=== PATIENT | male | born 1990 | race Asian ===

== ENCOUNTER 2018-11-11 15:24 | Emergency (ER) | payer OTHER, SELFPAY ==
[2018-11-11 15:29] VITALS: BP 151/76; PULSE 84; RESP 18; TEMP 37; O2SAT 97; BMI 24.4
--- NOTE | 2018-11-11 15:33 | DI.RAD.S_ITS ---
PROCEDURE: XR CHEST 2V INDICATIONS: R side and back pain with occ SOB, hx of spont pneumo TECHNIQUE: 2 views of the chest were acquired. COMPARISON: None. FINDINGS: Surgical changes and devices: None. Lungs and pleura: Lungs are clear. Right hemidiaphragmatic scarring. No pleural effusions or pneumothorax. Mediastinum: Mediastinal contours are normal. Heart size is normal. Bones and chest wall: No suspicious bony abnormalities. Soft tissues appear unremarkable. IMPRESSION: No acute process. Dictated by: Bello Chaudhry M.D. on 11/11/2018 at 15:03 Approved by: Bello Chaudhry M.D. on 11/11/2018 at 15:03
--- NOTE | 2018-11-11 16:09 | PC.NURSE ---
left side discomfort, worsen when he is bending over. nad. no resp distress noted, cooperative with care, skin warm dry pink.
[2018-11-11 16:10] VITALS: BP 137/57; PULSE 75; RESP 15; O2SAT 97
--- NOTE | 2018-11-11 16:58 | ED.CHESTPAIN ---
HPI - Chest Pain General Chief Complaint: Chest Pain Stated Complaint: Sharp pain upper right side Time Seen by Provider: 11/11/18 16:58 Source: patient Mode of arrival: ambulatory Limitations: no limitations History of Present Illness HPI narrative: This is a 28-year-old male comes to the emergency department with complaint of right-sided chest wall pain. Patient states that it is worse with movement and bending. He does remember having any trauma or injury recently. He did go for a run immediately before. He states that has not got any better but has not gotten worse. Just been present since then. He denies any fevers, cough or congestion. No shortness of breath, no lightheadedness or passing-out, no abdominal pain, no nausea or vomiting, GI or urinary symptoms. He has a history significant for spontaneous pneumothorax in 2008, he had a chest tube and ultimately had a VATS this is and was hospitalized for 2 hours total for this. He has not had any surgery 6. No medications, no tobacco, occasional alcohol, no illicit. 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 Related Data Home Medications Medication Instructions Recorded Confirmed No Known Home Medications 11/11/18 11/11/18 Allergies Allergy/AdvReac Type Severity Reaction Status Date / Time No Known Drug Allergies Allergy Verified 11/11/18 15:28 Review of Systems Review of Systems ROS Unobtainable: All systems reviewed & are unremarkable except as noted in HPI and below Constitutional Denies chills, Denies fever(s), Denies lethargy and Denies weakness Cardiovascular Reports chest pain (with movement), Denies chest pain at rest, Denies chest pain with activity, Denies diaphoresis, Denies syncope, Denies rapid heart rate, Denies edema, Denies irregular heart rhythm, Denies lightheadedness, Denies palpitations, Denies dyspnea, Denies dyspnea on exertion and Denies orthopnea Respiratory Denies change in phlegm color, Denies chest congestion, Denies cough, Denies hemoptysis, Denies pain on inspiration, Denies dyspnea, Denies dyspnea on exertion and Denies wheezing Gastrointestinal Gastrointestinal: Denies abdominal pain, Denies melena, Denies hematochezia, Denies change in bowel habits, Denies diarrhea, Denies nausea and Denies vomiting Genitourinary Denies hematuria, Denies dysuria, Denies flank pain, Denies urinary frequency and Denies urinary urgency Musculoskeletal Reports as per HPI, Denies back pain, Denies muscle weakness and Denies numbness Integumentary/Breasts Denies rash and Denies unusual bruising Neurologic Denies syncope, Denies numbness and Denies weakness Endocrine Denies palpitations Hematologic/Lymphatic Denies easy bruising Allergic/Immunologic Denies wheezing [facility] Medical History (Updated 11/11/18 @ 17:14 by Bridgette Lopes DO) Spontaneous pneumothorax (Acute) Social History (Updated 11/11/18 @ 17:14 by Bridgette Lopes DO) Smoking Status: Never smoker alcohol intake: current substance use type: does not use Social History (Updated 11/11/18 @ 17:14 by Bridgette Lopes DO) Smoking Status: Never smoker alcohol intake: current substance use type: does not use Exam Narrative Exam Narrative: GENERAL: Alert and oriented x three, well nourished, well appearing very fit male. HEENT: Head normocephalic, atraumatic, EOMI, pupils reactive, face symmetric, moist mucous membranes NECK: Supple, full range of motion CARDIOVASCULAR: Regular rate and rhythm without murmurs, rubs or gallops. RESPIRATORY: Breath sounds equal bilaterally, no wheezes rales or rhonchi. Patient has healed incisions from chest tube/VATS. ABDOMEN: Soft, nontender. Normoactive bowel sounds all 4 quadrants. No guarding or rebound, rigidity, no mass : No CVA tenderness EXTREMITIES: Normal range of motion, no clubbing or edema. Neurovascularly intact NEUROLOGICAL: Cranial nerves II through XII grossly intact. Moving all extremities SKIN: Warm, dry, no petechiae, no rashes or lesions. Initial Vital Signs Initial Vital Signs: Vital Signs Temperature 98.6 F 11/11/18 15:29 Pulse Rate 84 11/11/18 15:29 Respiratory Rate 18 11/11/18 15:29 Blood Pressure 151/76 H 11/11/18 15:29 Pulse Oximetry 97 11/11/18 15:29 Scores PERC Score Age greater than or equal to 50 years: No Heart rate greater than or equal to 100 bpm: No Room Air O2 Sat less than 95%: No Unilateral leg swelling: No Recent trauma or surgery: No Hemoptysis: No Prior PE or DVT: No Hormone Use: No Total PERC Score: 0 Course Orders Ordered: ED Orders 11/11/18 15:33 XR chest 2V Stat 11/11/18 15:46 EKG-12 Lead Stat Vital Signs - 8 hr 11/11/18 15:29 11/11/18 16:10 Temperature 98.6 F Pulse Rate 84 75 Respiratory Rate 18 15 Blood Pressure 151/76 H Blood Pressure [Left Arm] 137/57 L Pulse Oximetry 97 97 MDM - Chest Pain Imaging Data Chest x-ray: Radiologist's impression: [address] [address] XRay Report Signed Patient: Herb MclaughlinMR#: [id number] : 1990Acct:[id number] Age/Sex: 28 / MDate of Service: 11/11/18 Loc: ED Accession Number: [id number] Procedure: XR chest 2V Ordering Provider: Bridgette Lopes D.O. PROCEDURE: XR CHEST 2V INDICATIONS: R side and back pain with occ SOB, hx of spont pneumo TECHNIQUE: 2 views of the chest were acquired. COMPARISON: None. FINDINGS: Surgical changes and devices: None. Lungs and pleura: Lungs are clear. Right hemidiaphragmatic scarring. No pleural effusions or pneumothorax. Mediastinum: Mediastinal contours are normal. Heart size is normal. Bones and chest wall: No suspicious bony abnormalities. Soft tissues appear unremarkable. IMPRESSION: No acute process. Dictated by: Bello Chaudhry M.D. on 11/11/2018 at 15:03 Approved by: Bello Chaudhry M.D. on 11/11/2018 at 15:03 ECG Data Attestation: I personally reviewed and interpreted this ECG as follows: Prior ECG tracings: not available for review Interpretation: Sinus rhythm rate of 73 P are 150 QRS of 118 and QTC of 422. Patient has an RSR in V1 V2 but no other acute findings. Patient does not have any prior EKG available through [facility]. [facility] Narrative Medical decision making narrative: Patient's chest x-ray is negative, EKG some minor changes that are likely persistent. Patient does not have prior EKGs available today through [facility] [employer] [facility], he was given a copy to chair with his primary care. But I suspect this is his normal EKG. His pain is more chest wall with movement. Has normal vitals other than slightly elevated blood pressure. Discussed signs and symptoms to watch for and reasons to return emergently. Patient is comfortable with plan. Discharge Plan Departure Patient Disposition: Home Clinical Impression: Chest pain Discharge Date/Time: 11/11/18 17:16 Instructions: DI for Chest Pain Activity Restrictions/Additional Instructions: Follow-up with your primary care in the next 2-3 days for recheck if your symptoms are not totally resolved. You may take Tylenol up to a 1000 mg every 8 hours as needed for pain, you may take ibuprofen up to 800 mg every 8 hours as needed for pain. You may take these in combination as needed. Return to the emergency department for fevers greater than 100.4 F worsening chest pain, shortness of breath, passing out or lightheadedness, persistent vomiting, black or bloody stools, new rash any skin or other new or concerning symptoms. Prescriptions: No Action No Known Home Medications RF: 0
--- NOTE | 2018-11-11 17:01 | ED_ITS ---
HPI - Chest Pain General Chief Complaint: Chest Pain Stated Complaint: Sharp pain upper right side Time Seen by Provider: 11/11/18 16:58 Source: patient Mode of arrival: ambulatory Limitations: no limitations History of Present Illness HPI narrative: This is a 28-year-old male comes to the emergency department with complaint of right-sided chest wall pain. Patient states that it is worse with movement and bending. He does remember having any trauma or injury recently. He did go for a run immediately before. He states that has not got any better but has not gotten worse. Just been present since then. He denies any fevers, cough or congestion. No shortness of breath, no lightheadedness or passing-out, no abdominal pain, no nausea or vomiting, GI or urinary symptoms. He has a history significant for spontaneous pneumothorax in 2008, he had a chest tube and ultimately had a VATS this is and was hospitalized for 2 hours total for this. He has not had any surgery 6. No medications, no tobacco, occasional alcohol, no illicit. He does fly regularly for the [employer]. Related Data Home Medications Medication Instructions Recorded Confirmed No Known Home Medications 11/11/18 11/11/18 Allergies Allergy/AdvReac Type Severity Reaction Status Date / Time No Known Drug Allergies Allergy Verified 11/11/18 15:28 Review of Systems Review of Systems ROS Unobtainable: All systems reviewed & are unremarkable except as noted in HPI and below Constitutional Denies chills, Denies fever(s), Denies lethargy and Denies weakness Cardiovascular Reports chest pain (with movement), Denies chest pain at rest, Denies chest pain with activity, Denies diaphoresis, Denies syncope, Denies rapid heart rate, Denies edema, Denies irregular heart rhythm, Denies lightheadedness, Denies palpitations, Denies dyspnea, Denies dyspnea on exertion and Denies orthopnea Respiratory Denies change in phlegm color, Denies chest congestion, Denies cough, Denies hemoptysis, Denies pain on inspiration, Denies dyspnea, Denies dyspnea on exertion and Denies wheezing Gastrointestinal Gastrointestinal: Denies abdominal pain, Denies melena, Denies hematochezia, Denies change in bowel habits, Denies diarrhea, Denies nausea and Denies vomiting Genitourinary Denies hematuria, Denies dysuria, Denies flank pain, Denies urinary frequency and Denies urinary urgency Musculoskeletal Reports as per HPI, Denies back pain, Denies muscle weakness and Denies numbness Integumentary/Breasts Denies rash and Denies unusual bruising Neurologic Denies syncope, Denies numbness and Denies weakness Endocrine Denies palpitations Hematologic/Lymphatic Denies easy bruising Allergic/Immunologic Denies wheezing [facility] Medical History (Updated 11/11/18 @ 17:14 by Bridgette Lopes DO) Spontaneous pneumothorax (Acute) Social History (Updated 11/11/18 @ 17:14 by Bridgette Lopes DO) Smoking Status: Never smoker alcohol intake: current substance use type: does not use Social History (Updated 11/11/18 @ 17:14 by Bridgette Lopes DO) Smoking Status: Never smoker alcohol intake: current substance use type: does not use Exam Narrative Exam Narrative: GENERAL: Alert and oriented x three, well nourished, well appearing very fit male. HEENT: Head normocephalic, atraumatic, EOMI, pupils reactive, face symmetric, moist mucous membranes NECK: Supple, full range of motion CARDIOVASCULAR: Regular rate and rhythm without murmurs, rubs or gallops. RESPIRATORY: Breath sounds equal bilaterally, no wheezes rales or rhonchi. Patient has healed incisions from chest tube/VATS. ABDOMEN: Soft, nontender. Normoactive bowel sounds all 4 quadrants. No guarding or rebound, rigidity, no mass : No CVA tenderness EXTREMITIES: Normal range of motion, no clubbing or edema. Neurovascularly intact NEUROLOGICAL: Cranial nerves II through XII grossly intact. Moving all extremities SKIN: Warm, dry, no petechiae, no rashes or lesions. Initial Vital Signs Initial Vital Signs: Vital Signs Temperature 98.6 F 11/11/18 15:29 Pulse Rate 84 11/11/18 15:29 Respiratory Rate 18 11/11/18 15:29 Blood Pressure 151/76 H 11/11/18 15:29 Pulse Oximetry 97 11/11/18 15:29 Scores PERC Score Age greater than or equal to 50 years: No Heart rate greater than or equal to 100 bpm: No Room Air O2 Sat less than 95%: No Unilateral leg swelling: No Recent trauma or surgery: No Hemoptysis: No Prior PE or DVT: No Hormone Use: No Total PERC Score: 0 Course Orders Ordered: ED Orders 11/11/18 15:33 XR chest 2V Stat 11/11/18 15:46 EKG-12 Lead Stat Vital Signs - 8 hr 11/11/18 15:29 11/11/18 16:10 Temperature 98.6 F Pulse Rate 84 75 Respiratory Rate 18 15 Blood Pressure 151/76 H Blood Pressure [Left Arm] 137/57 L Pulse Oximetry 97 97 MDM - Chest Pain Imaging Data Chest x-ray: Radiologist's impression: [address] [address] XRay Report Signed Patient: Herb MclaughlinMR#: [id number] : 1990Acct:[id number] Age/Sex: 28 / MDate of Service: 11/11/18 Loc: ED Accession Number: [id number] Procedure: XR chest 2V Ordering Provider: Bridgette Lopes D.O. PROCEDURE: XR CHEST 2V INDICATIONS: R side and back pain with occ SOB, hx of spont pneumo TECHNIQUE: 2 views of the chest were acquired. COMPARISON: None. FINDINGS: Surgical changes and devices: None. Lungs and pleura: Lungs are clear. Right hemidiaphragmatic scarring. No pleural effusions or pneumothorax. Mediastinum: Mediastinal contours are normal. Heart size is normal. Bones and chest wall: No suspicious bony abnormalities. Soft tissues appear unremarkable. IMPRESSION: No acute process. Dictated by: Bello Chaudhry M.D. on 11/11/2018 at 15:03 Approved by: Bello Chaudhry M.D. on 11/11/2018 at 15:03 ECG Data Attestation: I personally reviewed and interpreted this ECG as follows: Prior ECG tracings: not available for review Interpretation: Sinus rhythm rate of 73 P are 150 QRS of 118 and QTC of 422. Patient has an RSR in V1 V2 but no other acute findings. Patient does not have any prior EKG available through [facility]. [facility] Narrative Medical decision making narrative: Patient's chest x-ray is negative, EKG some minor changes that are likely persistent. Patient does not have prior EKGs available today through [facility], he was given a copy to chair with his primary care. But I suspect this is his normal EKG. His pain is more chest wall with movement. Has normal vitals other than slightly elevated blood pressure. Discussed signs and symptoms to watch for and reasons to return emergently. Patient is comfortable with plan. Discharge Plan Departure Patient Disposition: Home Clinical Impression: Chest pain Discharge Date/Time: 11/11/18 17:16 Instructions: DI for Chest Pain Activity Restrictions/Additional Instructions: Follow-up with your primary care in the next 2-3 days for recheck if your symptoms are not totally resolved. You may take Tylenol up to a 1000 mg every 8 hours as needed for pain, you may take ibuprofen up to 800 mg every 8 hours as needed for pain. You may take these in combination as needed. Return to the emergency department for fevers greater than 100.4 F worsening chest pain, shortness of breath, passing out or lightheadedness, persistent vomiting, black or bloody stools, new rash any skin or other new or concerning symptoms. Prescriptions: No Action No Known Home Medications RF: 0
== END 2018-11-11 17:16 | disposition home or self-care (01) ==
PROVIDERS: Emergency Provider Emergency Medicine
DX: R07.9 Chest pain, unspecified (principal)
CPT/HCPCS: 71046; 93005; 99282; 99284